=== PATIENT | male | born 1980 | race Caucasian/White ===

== ENCOUNTER 2017-02-15 13:03 | Emergency (ER) | payer SELFPAY | END 2017-02-15 15:45 | disposition home or self-care (01) | DX: M54.41 Lumbago with sciatica, right side (principal); M54.16 Radiculopathy, lumbar region; Z79.899 Other long term (current) drug therapy; Z98.890 Other specified postprocedural states ==

== ENCOUNTER 2017-02-16 00:50 | Emergency (ER) | payer SELFPAY ==
--- NOTE | 2017-02-18 08:46 | ER ---
ADMIT: 02/16/2017 RM/LOC: ER [facility] MR#: [id number] [address] [id number] [address] [place] [address] Emergency Room Report SEX: M AGE: 36 : 1980 DATE: 02/16/2017 HISTORY OF PRESENT ILLNESS: The patient is a 36-year-old male recently diagnosed with lumbar disk herniation and recently had back pain which shoots down from the right hip to the posterior right knee and came to the ER because of the uncontrolled pain in the right hip and the posterior right thigh. The patient denies any recent trauma. The patient states he has the feeling of the mild numbness in the right lower extremity, as he had the last few days before he was seen here and diagnosed with disk herniation. The patient states he prefers to go to the [place] tomorrow night, as he is waiting for a ticket to be seen by his own doctor and his own primary doctor and neurosurgeon. PHYSICAL EXAMINATION: GENERAL: In the ER, the patient was in moderate-to- severe distress, lying in bed, trying to be immobile. HEAD AND NECK: Negative and noncontributory. CHEST: Clear bilaterally. HEART: Normal heart sounds. ABDOMEN: Soft. NEURO: Motor, sensory, and cranial nerves are grossly normal. Normal deep tendon reflexes. Normal cerebellar test. The patient also denies any saddle anesthesia, urinary or stool incontinence or retention or new weaknesses. Deep tendon reflexes are normal bilaterally in upper and lower extremities. The patient had at this stage, no signs or symptoms in favor of cauda equina, pain was controlled. The patient was discharged to home, as he preferred to go home and follow up with his doctor at [place] with diagnosis of lumbar disk bulging and radiculopathy with a prescription for Percocet and follow up with the primary doctor as soon as his arrival. The patient was discharged with strict return precautions. Garrett Lockett MD/ marnie JOB #: [id number] CC: Garrett Lockett MD, Attending Physician Jerome Rosen MD, Family Physician
== END 2017-02-16 03:25 | disposition home or self-care (01) ==
LOC: ER 00:50
DX: M51.16 Intervertebral disc disorders with radiculopathy, lumbar region (principal); Z79.891 Long term (current) use of opiate analgesic; Z79.52 Long term (current) use of systemic steroids